=== PATIENT | male | born 1985 | race Caucasian/White ===

== ENCOUNTER 2019-07-14 13:22 | Emergency (ER) | payer MEDICAID ==
[~2019-07-14] VITALS: Ht 154.9 cm; Wt 81.0 kg
[2019-07-14] MEDS ORDERED: TETanus/Pertussis (Acell)/Diphther VAC/PF (Tdap-Adult) 0.5ml syringe IMVAC ONE (14:00)
[2019-07-14] MEDS ORDERED: LIDOcaine 1% 30ml preserv. free vial IJ ONE (14:00)
[2019-07-14] MEDS ORDERED: HYDR-4383 PO (14:40)
[2019-07-14] MEDS ORDERED: CEPH250T PO (14:40)
[2019-07-14] MEDS ORDERED: DOXY100C76 PO (14:40)
[2019-07-14] MEDS ORDERED: CefTRIAXone 1000mg IM Kit (w/lidocaine diluent) IM ONE (14:40)
[2019-07-14] MEDS ORDERED: HYDROcodone/acetaminophen 10/325mg tab PO ONE (15:10)
[2019-07-14] MEDS ORDERED: acetaminophen 325mg tablet PO ONE (15:25)
[2019-07-14 15:46] VITALS: BP 126/77
== END 2019-07-14 15:54 | disposition home or self-care (01) ==
LOC: ER 13:22
DX: L02.01 Cutaneous abscess of face (principal); K13.0 Diseases of lips; Z79.899 Other long term (current) drug therapy
CPT/HCPCS: 10060; 71045; 90471; 90715; 93005; 96372; 99284; J0696

== ENCOUNTER 2019-07-20 08:54 | Inpatient (IN) | payer MEDICAID ==
[~2019-07-20] VITALS: Ht 177.8 cm; Wt 80.0 kg
[~2019-07-20 08:54] MED LIST: CEPH250T PO; DOXY100C76 PO; HYDR-4383 PO
[2019-07-20 12:20] LABS: BASOPHILS # (AUTO) 0.1 X10'3 (0-0.2); EOSINOPHILS # (AUTO) 0.1 X10'3 (0-0.9); EOSINOPHILS % (AUTO) 0.8 % (0-6); HEMATOCRIT 42.5 % (42.0-52.0); HEMOGLOBIN 14.3 g/dl (14.0-17.9); LYMPHOCYTES # (AUTO) 1.6 X10'3 (1.1-4.8); LYMPHOCYTES % (AUTO) 15.7 % (21-51); MEAN CORPUSCULAR HEMOGLOBIN 30.3 PG (27.0-31.0); MEAN CORPUSCULAR HGB CONC 33.7 g/dL (33.0-36.5); MEAN PLATELET VOLUME 8.3 FL (7.4-10.4); MONOCYTES # (AUTO) 0.5 X10'3 (0-0.9); MONOCYTES % (AUTO) 4.5 % (2-12); NEUTROPHILS # (AUTO) 7.8 X10'3 (1.8-7.7); PLATELET COUNT 370 X10'3 (140-440); RED BLOOD COUNT 4.72 X10'6 (4.70-6.10); RED CELL DISTRIBUTION WIDTH 13.5 % (11.5-14.5)
[2019-07-20 12:27] LABS: D-DIMER 1.34 MG/L FEU (0-0.50)
[2019-07-20 12:53] LABS: ALANINE AMINOTRANSFERASE 28 U/L (12-78); ALBUMIN 3.6 G/DL (3.4-5.0); ALBUMIN/GLOBULIN RATIO 0.7 (1.1-1.5); ALKALINE PHOSPHATASE 76 IU/L (46-116); ANION GAP 9 (8-16); ASPARTATE AMINO TRANSFERASE 16 U/L (10-37); BILIRUBIN,TOTAL 0.4 MG/DL (0.1-1.0); BLOOD UREA NITROGEN 8 MG/DL (7-18); C-REACTIVE PROTEIN 2.67 MG/DL (0.0-0.5); CALCIUM 9.6 MG/DL (8.5-10.1); CHLORIDE 104 MMOL/L (99-107); GLUCOSE 99 MG/DL (70-104); POTASSIUM 3.6 MMOL/L (3.5-5.1); SODIUM 141 MMOL/L (135-145); TOTAL CARBON DIOXIDE 27.6 MMOL/L (24-32); TOTAL PROTEIN 8.7 G/DL (6.4-8.2); eGFR 87 ML/MIN
[2019-07-20 13:44] LABS: URINE AMPHETAMINE SCREEN NEGATIVE (Neg); URINE BARBITUATE SCREEN NEGATIVE (Neg); URINE BENZODIAZEPINES SCREEN NEGATIVE (Neg); URINE CANNABINOID SCREEN POSITIVE (Neg); URINE COCAINE SCREEN NEGATIVE (Neg); URINE METHADONE SCREEN NEGATIVE (Neg); URINE OPIATE SCREEN NEGATIVE (Neg); URINE PHENCYCLIDINE SCREEN NEGATIVE (Neg)
[2019-07-20 13:51] LABS: CLARITY,URINE CLEAR (Clear); COLOR,URINE YELLOW (Yellow); GLUCOSE, URINE NEGATIVE (Neg); KETONES,URINE NEGATIVE (Neg); LEUKOCYTE ESTERASE ,URINE NEGATIVE (Neg); NITRITES, URINE NEGATIVE (Neg); OCCULT BLOOD,URINE NEGATIVE (Neg); PH,URINE 6.5 (4.8-8.0); PROTEIN,URINE NEGATIVE (Neg); UROBILINOGEN,URINE 0.2 E.U/dL (0.2-1.0)
[2019-07-20] MEDS ORDERED: iohexol 350MG/ML 100ml bottle IV ONE (14:07)
[2019-07-20 14:11] LABS: UA COLLECTION TYPE CLN CATCH MIDSTREAM
[2019-07-20] MEDS ORDERED: NO HOME MEDS (15:56)
[2019-07-20] MEDS ORDERED: normal saline 1000ml 1,000 ML IV SCH (17:46)
[2019-07-20] MEDS ORDERED: magnesium 2GM in 50ml NS 50 ML IV PRN (17:50)
[2019-07-20] MEDS ORDERED: potassium Cl 20 mEq SR tablet PO PRN ×2 (17:50)
[2019-07-20] MEDS ORDERED: potassium CL 10mEq/100ml bag 100 ML IV PRN ×2 (17:50)
[2019-07-20] MEDS ORDERED: mag hydrox/Alum hydrox/simeth 30ml oral suspension PO PRN (17:50)
[2019-07-20] MEDS ORDERED: magnesium Cl slow-release 64mg tablet PO PRN (17:50)
[2019-07-20] MEDS ORDERED: ondansetron/PF 4mg/2ml inj IV PRN (17:50)
[2019-07-20] MEDS ORDERED: magnesium 4gm in 100ml NS 100 ML IV PRN (17:50)
[2019-07-20] MEDS ORDERED: acetaminophen 325mg tablet PO PRN (17:50)
[2019-07-20] MEDS ORDERED: HYDROcodone/acetaminophen 5mg/325mg tablet PO PRN (17:50)
[2019-07-20] MEDS: K and/or MAG REPLACEMENT MC SCH (18:04)
[2019-07-20 21:45] VITALS: BP 144/82
[2019-07-21] VITALS (14 sets, daily range): BP systolic 121–143; BP diastolic 69–94
[2019-07-21 05:26] LABS: BASOPHILS # (AUTO) 0.1 X10'3 (0-0.2); EOSINOPHILS # (AUTO) 0.2 X10'3 (0-0.9); EOSINOPHILS % (AUTO) 2.8 % (0-6); HEMATOCRIT 38.3 % (42.0-52.0); HEMOGLOBIN 13.4 g/dl (14.0-17.9); LYMPHOCYTES # (AUTO) 2.1 X10'3 (1.1-4.8); LYMPHOCYTES % (AUTO) 27.7 % (21-51); MEAN CORPUSCULAR HEMOGLOBIN 31.3 PG (27.0-31.0); MEAN CORPUSCULAR HGB CONC 34.9 g/dL (33.0-36.5); MEAN CORPUSCULAR VOLUME 89.8 FL (78-98); MEAN PLATELET VOLUME 8.4 FL (7.4-10.4); MONOCYTES # (AUTO) 0.5 X10'3 (0-0.9); NEUTROPHILS # (AUTO) 4.6 X10'3 (1.8-7.7); NEUTROPHILS % (AUTO) 61.5 % (42-75); PLATELET COUNT 348 X10'3 (140-440); RED BLOOD COUNT 4.27 X10'6 (4.70-6.10); RED CELL DISTRIBUTION WIDTH 13.6 % (11.5-14.5); WHITE BLOOD COUNT 7.4 X10'3 (4.5-11.0)
[2019-07-21 05:41] LABS: ALBUMIN 3.2 G/DL (3.4-5.0); ANION GAP 6 (8-16); BLOOD UREA NITROGEN 8 MG/DL (7-18); BUN/CREATININE RATIO 7.8 (5.4-32.0); CALCIUM 9.1 MG/DL (8.5-10.1); CHLORIDE 105 MMOL/L (99-107); CREATININE 1.03 MG/DL (0.60-1.10); GLUCOSE 90 MG/DL (70-104); MAGNESIUM 2.2 MG/DL (1.5-2.4); POTASSIUM 3.8 MMOL/L (3.5-5.1); SODIUM 141 MMOL/L (135-145); TOTAL CARBON DIOXIDE 30.5 MMOL/L (24-32); eGFR 84 ML/MIN
--- NOTE | 2019-07-21 06:30 | NUR ---
Patient in room [facility]. I have received report from Jonathan COLLINS and had the opportunity to ask questions and assume patient care.
--- NOTE | 2019-07-21 06:41 | NUR ---
Problems reprioritized. Patient report given, questions answered & plan of care reviewed with ARINA. Addendum: 07/21/19 at 0641 by Morgan Cantrell RN Amended: Links added.
[2019-07-21] MEDS: K and/or MAG REPLACEMENT MC SCH ×2 (08:00→20:00)
--- NOTE | 2019-07-21 08:53 | NUR ---
Patient in room [facility]. I have received report from night nurse and had the opportunity to ask questions and assume patient care.
--- NOTE | 2019-07-21 12:15 | NUR ---
Malnutrition consult. Per MD note is well developed and well nourished. Current weight patient stated at 176 lbs; no previous documented weights. Currently NPO. No edema. 107% of IBW. Admitted with chest pain, cough, pending biopsy of lung. No malnutrition at this time. Will follow. Addendum: 07/21/19 at [address] Amended: Links added.
--- NOTE | 2019-07-21 12:16 | NUR ---
Problems reprioritized. Patient report given to Yang, questions answered & plan of care reviewed with .
--- NOTE | 2019-07-21 13:15 | NUR ---
Student documentation: I have reviewed all interventions, assessments performed and documented by Suzanne HERNANDEZ
[2019-07-21] MEDS ORDERED: LIDOcaine 1%/PF 5ML 10 MG/ML VIAL SQ ONE (14:15)
[2019-07-21] MEDS ORDERED: fentaNYL/PF 50MCG/1 ML 2ML syringe IV PRN (14:15)
[2019-07-21] MEDS ORDERED: midazolam 2 mg/2 ml injection IV PRN (14:15)
[2019-07-21] MEDS ORDERED: fentaNYL/PF 50MCG/1 ML 2ML syringe ONE (14:18)
[2019-07-21] MEDS ORDERED: midazolam 2 mg/2 ml injection ONE (14:18)
--- NOTE | 2019-07-21 15:46 | NUR ---
Student documentation: Marika King RN Clinical Instructor for [facility], have reviewed all interventions, assessments performed and documented by Yang JOSEPH from [facility].
--- NOTE | 2019-07-21 18:44 | NUR ---
Problems reprioritized. Patient report given, questions answered & plan of care reviewed with Kimberly COLLINS.
--- NOTE | 2019-07-21 20:29 | NUR ---
Patient in room [facility]. I have received report from DENNIS Davey and had the opportunity to ask questions and assume patient care. Addendum: 07/21/19 at 2029 by Kimberly Bill RN Amended: Links added.
[2019-07-22 00:39] VITALS: BP 124/82
[2019-07-22 06:08] LABS: ALBUMIN 3.3 G/DL (3.4-5.0); ANION GAP 8 (8-16); BLOOD UREA NITROGEN 9 MG/DL (7-18); BUN/CREATININE RATIO 8.5 (5.4-32.0); CALCIUM 9.3 MG/DL (8.5-10.1); CHLORIDE 103 MMOL/L (99-107); CREATININE 1.06 MG/DL (0.60-1.10); GLUCOSE 94 MG/DL (70-104); MAGNESIUM 2.3 MG/DL (1.5-2.4); POTASSIUM 3.7 MMOL/L (3.5-5.1); SODIUM 140 MMOL/L (135-145); TOTAL CARBON DIOXIDE 28.6 MMOL/L (24-32); eGFR 81 ML/MIN
[2019-07-22 06:09] LABS: BASOPHILS # (AUTO) 0.1 X10'3 (0-0.2); BASOPHILS % (AUTO) 0.7 % (0-1); EOSINOPHILS # (AUTO) 0.3 X10'3 (0-0.9); EOSINOPHILS % (AUTO) 3.8 % (0-6); HEMOGLOBIN 13.7 g/dl (14.0-17.9); LYMPHOCYTES # (AUTO) 1.6 X10'3 (1.1-4.8); MEAN CORPUSCULAR HEMOGLOBIN 30.6 PG (27.0-31.0); MEAN CORPUSCULAR HGB CONC 34.2 g/dL (33.0-36.5); MEAN CORPUSCULAR VOLUME 89.4 FL (78-98); MEAN PLATELET VOLUME 8.6 FL (7.4-10.4); MONOCYTES # (AUTO) 0.6 X10'3 (0-0.9); NEUTROPHILS # (AUTO) 4.5 X10'3 (1.8-7.7); NEUTROPHILS % (AUTO) 64.5 % (42-75); PLATELET COUNT 362 X10'3 (140-440); RED BLOOD COUNT 4.47 X10'6 (4.70-6.10); RED CELL DISTRIBUTION WIDTH 13.5 % (11.5-14.5)
--- NOTE | 2019-07-22 06:41 | NUR ---
Problems reprioritized. Patient report given, questions answered & plan of care reviewed with DENNIS Davey. Addendum: 07/22/19 at 0641 by Kimberly Bill RN Amended: Links added.
--- NOTE | 2019-07-22 06:42 | NUR ---
Patient in room [facility]. I have received report from Night nurse and had the opportunity to ask questions and assume patient care.
--- NOTE | 2019-07-22 06:44 | NUR ---
Patient in room [facility]. I have received report from Kimberly COLLINS and had the opportunity to ask questions and assume patient care.
[2019-07-22 07:36] VITALS: BP 113/63
[2019-07-22] MEDS: K and/or MAG REPLACEMENT MC SCH (08:00)
--- NOTE | 2019-07-22 10:54 | NUR ---
Student documentation: Marika King Clinical Instructor with [facility], reviewed all interventions, assessments performed and documented by Suzanne JOSEPH with [facility].
--- NOTE | 2019-07-22 12:00 | NUR ---
Patient discharged, patient left with out any new medications, patients instructed to attain a primary, and is to follow up with primary in one weeks time. Patient IV was taken out at the time discharge by student. Patient iv canula was whole and intacted upon removal. Patient left with all of his belongings at discharge and patient transported himself home upon leaving hospital.
== END 2019-07-22 11:15 | disposition home or self-care (01) | DRG 145 ==
LOC: ER 08:55 → INTOOBSV 17:46 → SUR 3N 17:46 → PACU 17:46 → OBSVTOIN 17:46 → UNDOADMOB 17:46 → CMPBEDREQ 21:13 → PACU 21:14 → SUR 3N 21:14 → OBSVTOIN 07-21 07:52
PROVIDERS: ADMIT Internal Medicine; ATTEND Internal Medicine
PROC: B32T1ZZ Computerized Tomography (CT Scan) of Left Pulmonary Artery using Low Osmolar Contrast (ICD-10-PCS; 2019-07-20)
PROC: B3201ZZ Computerized Tomography (CT Scan) of Thoracic Aorta using Low Osmolar Contrast (ICD-10-PCS; 2019-07-20)
PROC: B32S1ZZ Computerized Tomography (CT Scan) of Right Pulmonary Artery using Low Osmolar Contrast (ICD-10-PCS; 2019-07-20)
PROC: 0BBC3ZX Excision of Right Upper Lung Lobe, Percutaneous Approach, Diagnostic (ICD-10-PCS; principal; 2019-07-21)
DX: R07.81 Pleurodynia (principal); F12.90 Cannabis use, unspecified, uncomplicated; R91.8 Other nonspecific abnormal finding of lung field
CPT/HCPCS: 32405; 36415; 71045; 71250; 71275; 77012; 80048; 80053; 80305; 81003; 83605; 83735; 84145; 84484; 85025; 85379; 85651; 86140; 87040; 87081; 99152; 99153; 99285; G0378; J2250; J3010; J7030; Q9967

== ENCOUNTER 2020-09-04 07:28 | Emergency (ER) | payer MEDICAID ==
[~2020-09-04] VITALS: Ht 175.3 cm; Wt 85.0 kg
[2020-09-04 07:31] VITALS: BP 156/81
== END 2020-09-04 08:55 | disposition home or self-care (01) ==
LOC: ER 07:28
DX: L02.411 Cutaneous abscess of right axilla (principal); L03.111 Cellulitis of right axilla; F12.90 Cannabis use, unspecified, uncomplicated
CPT/HCPCS: 99282